=== PATIENT | female | born 1975 | race Caucasian/White ===

== ENCOUNTER → 2017-03-08 | Outpatient (CLI) | payer OTHER ==
--- NOTE | 2017-03-08 16:22 | CT ---
EXAMINATION TYPE: CT iac wo con DATE OF EXAM: 03/08/2017 4:07 PM COMPARISON: CT IAC October 09, 2016 HISTORY: Pt states of fluid and pain in left ear. Cholesteatoma left ear per order. CT DLP: 209 mGycm. Automated Exposure Control for Dose Reduction was Utilized. TECHNIQUE: CT scan of internal auditory canal is performed without contrast, thin cut axial images ar e obtained, coronal reformatted images are also reviewed. FINDINGS: Patchy minimal soft tissue density in the external auditory canals bilaterally is seen at l evel of tympanic membrane, this is improved on the right and new on the left, favoring cerumen. There is persistent near complete opacification of left mastoid air cells this is worse versus prior exam. Right mastoid air cells show no suspicious opacification. The middle ear ossicles remain abnormal o n the left particularly the incus and stapes which appear small and deformed in size. There is no benjamin dence of suspicious surrounding soft tissue density on current study. The scutum is significantly bl unted on the left similar to prior. The cochlea and the semicircular canals are symmetric and unrema rkable. Vestibular aqueduct and internal carotid canal appear unremarkable. Temporomandibular joints are maintained bilaterally. There is persistent air-fluid level in the left maxillary sinus. Remainder visualized sinuses are clear. Visualized portion brain parenchyma is felt within normal limits. IMPRESSION: Worsening left-sided mastoid fluid collection, possible mastoiditis. Interval improvement in abnormal soft tissue along the deeper aspect of the left middle ear ossicles. Persistent abnormal shape of ossicles and scutum presumed product of chronic infection without significant interval knott ge. Possible persistent left maxillary acute sinusitis, clinical correlation advised.
== END | disposition home or self-care (01) ==
LOC: RADCTMAIN 15:54
PROVIDERS: ATTEND Otolaryngology
DX: H74.92 Unspecified disorder of left middle ear and mastoid (principal); H71.22 Cholesteatoma of mastoid, left ear; H71.21 Cholesteatoma of mastoid, right ear
CPT/HCPCS: 70480

== ENCOUNTER → 2018-06-28 | Outpatient (CLI) | payer OTHER ==
--- NOTE | 2018-06-28 10:31 | CT ---
EXAMINATION TYPE: CT iac wo con DATE OF EXAM: 06/28/2018 COMPARISON: Prior CT IAC March 08, 2017 and older study October 09, 2016. HISTORY: Extensive Cholesteatoma left side per order. Fluid and pain in left ear. History of tympanic reconstruction. CT DLP: 200 mGycm. Automated Exposure Control for Dose Reduction was Utilized. TECHNIQUE: CT scan of internal auditory canal is performed without contrast, thin cut axial images ar e obtained, coronal reformatted images are also reviewed. FINDINGS: The external auditory canals remain patent bilaterally. No suspicious new soft tissue densi ty identified. There has been interval surgery at the mastoid level on the left seen best axial image 39 and coronal image 51 with osseous resection and surgical packing. The surrounding mastoid air cells that remain present remain completely opacified . No suspicious new opacification of right mastoid air cells is p resent. The middle ear ossicles show stable slightly diminished size or prominence on the left for reference coronal image 43 unchanged from prior studies. There is interval improvement in abnormal soft tissue density surrounding middle ear ossicles on the left along deeper aspect. There is some residual linea r and slightly thickened soft tissue along superficial lateral aspect seen best coronal image 43 and axial image 35 on current study that is new from the most recent exam. This is adjacent to level of s cutum which is better seen perhaps there has been interval surgical reconstruction coronal image 44. Right side shows no suspicious soft tissue density, Scutum is preserved. The cochlea and the semicircular canals are symmetric and unremarkable. Vestibular aqueduct and inte rnal carotid canal appear unremarkable. Temporomandibular joints are maintained bilaterally. There is new mild mucosal thickening involving t he inferior right maxillary sinus and mild to moderate mucosal thickening involving left maxillary si nus with patchy opacification and air-fluid level on the left redemonstrated. Nasal septum remains de viated to right of midline. Visualized portion brain parenchyma is felt within normal limits. IMPRESSION: 1. Interval mastoidectomy surgery. Interval clearance of abnormal soft tissue or cholesteatoma from t he deeper portion of the middle ear. Some new soft tissue along the superficial or lateral portion is however noted and could reflect recurrent middle ear infection. 2. Persistent acute left maxillary sinus disease felt present.
== END | disposition home or self-care (01) ==
LOC: RADCTMAIN 09:48
PROVIDERS: ATTEND Otolaryngology
DX: H71.22 Cholesteatoma of mastoid, left ear (principal); Z98.890 Other specified postprocedural states
CPT/HCPCS: 70480

== ENCOUNTER → 2021-01-30 | Outpatient (CLI) | payer OTHER | END | disposition home or self-care (01) | LOC: LABWHC1 16:51 | PROVIDERS: ATTEND Family Medicine | DX: Z20.822 Contact with and (suspected) exposure to COVID-19 (principal) | CPT/HCPCS: U0003; C9803; U0005 ==

== ENCOUNTER → 2021-02-17 | Outpatient (CLI) | payer OTHER ==
[2021-02-17 14:58] LABS: Basophils # (A) 0.02 X 10*3/uL (0.00-0.10); Basophils % (A) 0.4 %; Eosinophils # (A) 0.08 X 10*3/uL (0.04-0.35); Eosinophils % (A) 1.6 %; HCT 39.1 % (37.2-46.3); HGB 12.7 g/dL (12.0-15.0); Lymphocytes % (A) 35.4 %; MCH 31.8 pg (27.0-32.0); MCHC 32.5 g/dL (32.0-37.0); MCV 97.8 fL (80.0-97.0); Mean Platelet Volume 12.5 fL (9.5-12.2); Monocytes # (A) 0.62 X 10*3/uL (0.20-1.00); Monocytes % (A) 12.2 %; Neutrophils # (A) 2.55 X 10*3/uL (1.80-7.70); Neutrophils % (A) 50.2 %; Platelet Count 140 X 10*3/uL (140-440); RDW 11.6 % (11.5-14.5); WBC 5.08 X 10*3/uL (4.50-10.00)
[2021-02-17 15:19] LABS: ALT 18 U/L (8-44); AST 21 U/L (13-35); African American GFR (CKD) 104.7 (60.0-200.0); Albumin/Globulin Ratio 1.74 (1.60-3.17); Alkaline Phosphatase 41 U/L (41-126); Calcium 9.4 mg/dL (8.7-10.3); Carbon Dioxide 25.2 mmol/L (21.6-31.8); Chloride 105 mmol/L (96-109); Chol/HDL Ratio 2.63; Cholesterol 239 mg/dL (0-200); Globulin 2.7 g/dL (1.6-3.3); Glucose 90 mg/dL (70-110); Non-African American GFR(CKD) 90.3 (60.0-200.0); Potassium 4.3 mmol/L (3.5-5.5); Sodium 137 mmol/L (135-145); Total Bilirubin 0.7 mg/dL (0.3-1.2); Total Protein 7.4 g/dL (6.2-8.2); Triglycerides <50.0 mg/dL (0.0-149.0)
== END | disposition home or self-care (01) ==
LOC: LABWHC1 07:50
PROVIDERS: ATTEND Nurse Practitioner
DX: Z00.00 Encounter for general adult medical examination without abnormal findings (principal); H69.82 Other specified disorders of Eustachian tube, left ear; E03.9 Hypothyroidism, unspecified; H91.90 Unspecified hearing loss, unspecified ear; Z53.20 Procedure and treatment not carried out because of patient's decision for unspecified reasons
CPT/HCPCS: 36415; 80053; 80061; 84439; 84443; 85025